=== PATIENT | male | born 1960 | race Caucasian/White ===

== ENCOUNTER → 2016-10-24 | Outpatient (CLI) | payer BC ==
--- NOTE | 2016-10-24 11:57 | P.STRESS ---
- Stress Test Note Stress Test Results/Findings: Exam Performed: stress test Exam Date: 10/24/16 Height: 5 ft 8 in Weight: 118.841 kg Protocol: VINCENT Stage: 4 Duration of Exercise: 9:33 Resting Heart Rate: 76 Resting Blood Pressure: 132/91 Maximum Achieved Heart Rate: 142 Maximum Achieved Blood Pressure: 227/79 85% PMHR: 141 100% PMHR: 166 METS: 11.1 Technologist Comment: Stress Test Results/Findings: Baseline sinus mechanism normal intervals. Patient exercised on Vincent protocol for 9 minutes 33 second, reaching peak heart rate of 142 bpm which is equal to 85% maximum predicted heart rate. Test was terminated secondary to fatigue there was no chest pain. EKG monitoring revealed rare PVCs, there was no evidence of ischemic ST segment changes. Impression: 1. Average exercise tolerance. 2. Occasional PVCs. 3. Normal EKG response to stress with no evidence of ischemic ST segment changes.
== END | disposition home or self-care (01) ==
LOC: RADNMMAIN 10:28
PROVIDERS: ATTEND Family Medicine
DX: I49.3 Ventricular premature depolarization (principal)
CPT/HCPCS: 93017

== ENCOUNTER → 2016-11-01 | Outpatient (CLI) | payer BC ==
--- NOTE | 2016-11-02 11:09 | ECHOF ---
Referral Reason:R07.89 Atypical Chest Pain MEASUREMENTS -------- HEIGHT: 172.7 cm WEIGHT: 117.9 kg BP: 138/75 RVIDd: 2.5 cm (< 3.3) IVSd: 1.1 cm (0.6 - 1.1) LVIDd: 5.0 cm (3.9 - 5.3) LVPWd: 1.2 cm (0.6 - 1.1) IVSs: 1.7 cm LVIDs: 3.4 cm LVPWs: 1.5 cm LA Diam: 3.5 cm (2.7 - 3.8) LAESV Index (A-L): 26.28 ml/m Ao Diam: 3.9 cm (2.0 - 3.7) AV Cusp: 2.4 cm (1.5 - 2.6) MV EXCURSION: 26.377 mm (> 18.000) MV EF SLOPE: 113 mm/s (70 - 150) EPSS: 0.7 cm MV E Ck: 0.81 m/s MV DecT: 180 ms MV A Ck: 0.58 m/s MV E/A Ratio: 1.40 FINDINGS -------- Sinus rhythm. This was a technically good study. The left ventricular size is normal. There is borderline concentric left ventricular hypertrophy. Overall left ventricular systolic function is normal with, an EF between 55 - 60 %. The right ventricle is normal in size and function. Normal LA size by volume 22+/-6 ml/m2. The right atrium is normal in size. The aortic valve is trileaflet and appears structurally normal. The mitral valve is normal. No mitral regurgitation. The tricuspid valve appears structurally normal. No regurgitation noted Trace/mild (physiologic) pulmonic regurgitation. 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 Normal inferior vena cava with normal inspiratory collapse consistent with estimated right atrial pressure of 5 mmHg. There is no pericardial effusion. CONCLUSIONS -------- 1. Sinus rhythm. 2. 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 3. Normal inferior vena cava with normal inspiratory collapse consistent with estimated right atrial pressure of 5 mmHg. 4. There is no pericardial effusion. 5. This was a technically good study. 6. There is borderline concentric left ventricular hypertrophy. 7. Overall left ventricular systolic function is normal with, an EF between 55 - 60 %. 8. Normal LA size by volume 22+/-6 ml/m2. 9. The aortic valve is trileaflet and appears structurally normal. 10. The mitral valve is normal. 11. The tricuspid valve appears structurally normal. 12. Trace/mild (physiologic) pulmonic regurgitation. COFFEE BREWER: Tracy Cuba RDCS
== END | disposition home or self-care (01) ==
LOC: RADECHMAIN 14:27
PROVIDERS: ATTEND Family Medicine
DX: I37.1 Nonrheumatic pulmonary valve insufficiency (principal)
CPT/HCPCS: 93306

== ENCOUNTER → 2018-02-04 | Outpatient (CLI) | payer BC ==
--- NOTE | 2018-02-05 08:24 | CT ---
EXAMINATION TYPE: CT abdomen pelvis wo con DATE OF EXAM: 02/04/2018 COMPARISON: None HISTORY: Left side inguinal hernia and abdominal pain. CT DLP: 770.9 mGycm Automated exposure control for dose reduction was used. TECHNIQUE: Helical acquisition of images was performed from the lung bases through the pelvis. FINDINGS: LUNG BASES: No significant abnormality is appreciated. LIVER/GB: Unremarkable unenhanced morphology of the liver. No cholelithiasis is seen. PANCREAS: No significant abnormality is seen. SPLEEN: No significant abnormality is seen. ADRENALS: A fat-containing left adrenal nodule is seen on coronal images only as it is elongated in t he craniocaudal dimension measured on series 6 image 45 at 1.9 cm compatible with a lipid rich adenom a. KIDNEYS: There is a 2.1 cm right renal cyst diving into the renal sinus. Mild nonspecific bilateral p erinephric fat stranding is appreciated. FREE AIR: No free air is visualized RETROPERITONEAL ADENOPATHY: No greater than 1 cm short axis lymph nodes are seen within the abdomen or pelvis. REPRODUCTIVE ORGANS: No significant abnormality is seen OSSEOUS STRUCTURES: Minimal multilevel degenerative changes of the spine are present. BOWEL: Scattered colonic diverticula are seen without pericolonic fat stranding. These predominate w ithin the sigmoid colon. Sigmoid colon is incompletely distended. Lack of oral contrast limits evalua tion of the bowel. There is redundancy of the sigmoid colon and medial displacement of the descending colon. Appendix is air-filled and within normal limits. Within the right inguinal region just proxim al to the right inguinal canal on series 3 image 1:15 and 116 there is a central fat-containing 1.6 c m lesion favored to represent an epiploic appendage or omental infarct. No current inflammatory fat s tranding is seen surrounding this region. OTHER: There are fat-containing bilateral inguinal rings with slight diastases of the right inguinal canal during up to 1.9 cm as opposed on the left measuring up to 1.6 cm. No presley herniation is appre ciated. No abutting bowel is seen. There is a small fat filled umbilical hernia with a subcentimeter neck. Mild atherosclerosis is seen of the abdominal aorta and its branches. Abdominal aorta is of normal co urse and caliber. IMPRESSION: 1. INGUINAL RINGS ARE FAT FILLED BILATERALLY AND THERE IS SLIGHT DIASTASES OF THE RIGHT INGUINAL RICA L . HOWEVER NO SIZABLE INGUINAL HERNIA IS SEEN ON THE RIGHT OR LEFT. 2. 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 3. BENIGN-APPEARING 2.1 CM RIGHT RENAL CYST. 4. RIGHT-SIDED EPIPLOIC APPENDAGE VERSUS OMENTAL INFARCT WITH NO CURRENT SURROUNDING INFLAMMATORY SLIME NGE.
== END ==
LOC: RADCTMAIN 16:05
PROVIDERS: ATTEND Family Medicine
DX: D35.02 Benign neoplasm of left adrenal gland (principal); M62.08 Separation of muscle (nontraumatic), other site; N28.1 Cyst of kidney, acquired
CPT/HCPCS: 74176

== ENCOUNTER → 2022-12-04 | Outpatient (CLI) | payer BC ==
[2022-12-04 17:41] LABS: Partial Thromboplastin Time 25.6 sec (22.0-30.0); Prothrombin Time 10.7 sec (9.0-12.0)
== END | disposition home or self-care (01) ==
LOC: LABWHC1 15:38
PROVIDERS: ATTEND Family Medicine
DX: Z01.812 Encounter for preprocedural laboratory examination (principal)
CPT/HCPCS: 36415; 85610; 85730

== ENCOUNTER → 2023-03-25 | Outpatient (CLI) | payer BC ==
[~2023-03-25] MED LIST: DOBUTamine DRIP for NUC MED 500 MG in DEXTROSE/WATER 1 250ML.BAG IV PRN
--- NOTE | 2023-03-26 11:10 | CA ---
Dobutamine Stress Echocardiogram Report Elton Gibobns Age: 62 Gender: M : 1960 Exam Date: 03/25/2023 10:52 Exam Location: [facility] Ordering Physician: Chandrakant Cristobal DO Referring Physician: CRISTOBAL Table Tender Sludge: Chandrakant Negrete Technologist: Ht (in): 68 Wt (lb): 250 Procedure CPT: Indication: R07.89 chest pain ICD-9 Codes: Rhythm: Patient History: Chest pain Cardiac Medications: Medications in past 24 hours: Contrast: Total Dose (mL): Stress Results Protocol: Dobutamine Peak Dose (???g/kg/min): 30 Duration (min:sec): Atropine:(mg) Target HR: 136 Double Product: 12820 Resting HR: 75 Resting BP: 115 / 74 Peak HR: 137 Peak BP: 108 / 64 Max Predicted HR: 160 86 % Max Predicted HR Stress Summary: BP Response: Reason for Termination: INFUSION COMPLETE,Target HR Cardiac Symptoms: NO SYMPTOMS ECG Analysis Resting EKG: Normal sinus rhythm, heart rate 76 beats a minute Stress EKG: No significant ST-T wave changes diagnostic for ischemia Arrhythmia: No ectopic beats or sustained arrhythmias Echo Analysis Base Echo Analysis: Normal global systolic function. No regional resting wall motion abnormality Low Echo Anaylsis: Normal augmentation of systolic function of all myocardial segments. No obvious regional wall motion abnormality Peak Echo Analysis: Normal augmentation of systolic function of all myocardial segments. No obvious regional wall motion abnormality Recovery Echo: No obvious regional wall motion abnormality MEASUREMENTS (Male/Female) Normal Values CONCLUSIONS Overall normal dobutamine stress echocardiogram Nonischemic ECG and echocardiogram response to dobutamine infusion Normal hemodynamic and clinical response to dobutamine infusion Dr Leo Guzmán (Electronically Signed) Final Date: 26 March 2023 11:09
== END | disposition home or self-care (01) ==
LOC: RADNMMAIN 09:04
PROVIDERS: ATTEND Family Medicine
DX: R07.89 Other chest pain (principal)
CPT/HCPCS: 93351